=== PATIENT | female | born 1985 | race Caucasian/White ===

== ENCOUNTER → 2017-11-15 | Day surgery (SDC) | payer OTHER ==
[~2017-11-15] VITALS: Ht 175.3 cm; Wt 72.5 kg
[~2017-11-15] MED LIST: CEFAZOLIN 1000MG IV PUSH 7.5 ML IV SCH; CLINDAMYCIN 600 MG/54 ML D5W IV SCH; FENTANYL CITRATE INJ 50 MCG/1 ML 2 ML VIAL IV ONE; FENTANYL CITRATE INJ 50 MCG/1 ML 2 ML VIAL ONE; LIDOCAINE HCL 1% 20 ML VIAL INJ ONE; LIDOCAINE HCL 1% 20 ML VIAL ONE; LIDOCAINE/EPINEPHRINE 1% 20 ML VIAL ONE; MIDAZOLAM HCL 1 MG/ML 2ML VIAL ONE; MIDAZOLAM HCL 5 MG/ML 1 ML VIAL IV ONE; ORM MISCELLANEOUS MED TOP ONE; PATIENT'S ALLERGY INFO NEEDS ENTERED SCH; SODIUM CHLORIDE 0.9% 1000ML IV SCH
--- NOTE | 2017-11-15 06:07 | History and Physical ---
History & Physical Date of Service Nov 15, 2017. History & Physical CC: Varicose veins and venous insufficiency of the right lower extremity. HPI: Ms. Spencer is a very pleasant 31-year-old female, who has painful symptomatic bilateral lower extremity varicose veins. The right is more painful than the left. She has previously tried 3 months of compression stockings without much relief. She was seen at [facility] and had been evaluated for venous reflux, which she was found to have in bilateral lower extremities. She had previously been scheduled for venous ablation. However, her was admitted to [facility] and due to the distance and need for early childhood education instructor, she cancelled this appointment and has come to our office for re- evaluation. She states her varicosities are very painful by the afternoon at the end of the day. These are worse after she exercises. She states her symptoms are significantly better in the morning. She denies any ulcerations or bleeding. Noninvasive testing did show venous insufficiency of the right lower extremitiy. She denies any claudication, rest pain, or tissue loss. She denies any stroke or TIA-like symptoms. She denies any new abdominal or back pain. ALLERGIES ARE TO [place]. Past medical history is varicosities. Past surgical history is tonsillectomy in 2006. Home medications are none. SOCIAL HISTORY: She is a mother, who lives at home with her . She has a 5 and an [id number] child. No smoking. Social alcohol. No illicit substances. PHYSICAL EXAM: Weight is 73.5 kg, heart rate 70, blood pressure 102/62, saturating 99% on room air. This is a 31-year-old female, in no acute distress. Head is normocephalic, atraumatic. Extremities are intact. Neck is supple. Trachea is midline. Heart is regular. Her lungs are clear. Abdomen is soft, nontender, and nondistended, has large varicosities along the medial aspect of both bilateral lower extremities. No ulcerations, no chronic stasis dermatitis. She has palpable bilateral radial, femoral, DP and PT pulses. No focal deficits. Ms. Spencer is a very pleasant 31-year-old female with C+3 varicosities, who has failed conservative treatment. Her noninvasive testing did show venous insufficiency of the right lower extremity. Imp: Varicose veins and venous insufficiency of the right lower extremity. Plan: Patient is admitted for ablation of the right greater saphenous vein. I have discussed the risks options and benefits of the procedure with the patient. The patient understands the risks options and benefits and agrees to the procedure.
[2017-11-15 08:38] VITALS: BP 108/69; PULSE 50; TEMP 36.6; O2SAT 99; Ht 175.3 cm; Wt 72.5 kg
--- NOTE | 2017-11-15 09:35 | History & Physical Bridge Note ---
H&P Re-Evaluation Bridge Note: I have examined the patient, reviewed the History & Physical and in the interval since the performance of the History & Physical I have noted the following changes of clinical significance: No changes noted
--- NOTE | 2017-11-15 09:36 | Pre Sedation Assessment ---
Pre Sedation Assessment General Date of Sedation: Nov 15, 2017. Vital Signs Past 12 Hours Date Time Temp Pulse Resp B/P (MAP) Pulse Ox O2 Delivery O2 Flow Rate FiO2 11/15/17 08:38 36.6 50 18 108/69 (82) 99 Room Air Pre-Sedation Airway Assessment Smoking Status: Never Smoker Hx of Sleep Apnea: No Short Thick Neck: No Thyro-mental Distance: > 3 Finger Breadths Oral Cavity: WNL Mallampati Classification: Class I ASA Classification: Class I NPO Status Date of Last Intake of Fluids: Nov 14, 2017 Time of Last Intake of Fluids: 2199 Date of Last Intake of Solids: Nov 14, 2017 Time of Last Intake of Solids: 2199 Procedure Planning Contraindications for Sedation: None Current Medications Reviewed: Yes Notes The planned sedation has been discussed with the patient. Informed Consent was obtained. I have identified the patient, determined the appropriateness of sedation and have assessed the patient immediately prior to the procedure. All medicine(s) and interventions are by my order.
--- NOTE | 2017-11-15 10:31 | Discharge Instructions ---
Discharge Instructions Date of Service Nov 15, 2017. Visit Reason for Visit: Varicose Veins Discharge Discharge Diagnosis / Problem: Venous insufficiency rigth leg Discharge Goals Goal(s): Therapeutic intervention Activity Recommendations Activity Limitations: per Instructions/Follow-up section Anesthesia . Post Anesthesia Instructions: If you have had General Anesthesia or IV Sedation: * Do not drive today. * Resume driving when surgeon permits. * Do not make important decisions or sign legal documents today. * Call surgeon for: 1. Temperature elevations greater than 101 degrees F. 2. Uncontrollable pain. 3. Excessive bleeding. 4. Persistent nausea and vomiting. 5. Medication intolerance (nausea, vomiting or rash). * For nausea and vomiting use only clear liquids such as: tea, soda, bouillon until nausea subsides, then gradually increase diet as tolerated. * If you have any concerns or questions, call your surgeon's office. If physician is unavailable and it is an emergency, call 911 or go to the nearest emergency room. . Instructions / Follow-Up Instructions / Follow-Up Call [phone] to schedule a follow up appointment if one not already scheduled. SPECIAL CARE INSTRUCTIONS: Wraps/Dressings: * A compression wrap will be applied to your legs after the procedure and should remain in place until the morning after. * Remove the bandage if it rolls down or causes pain. Rewrap the leg starting at the bottom of the leg, just above the toes. Apply firm, but gently pressure when applying the wrap. * Avoid getting the wrap wet. * You may shower the following morning after you remove the wraps/dressings. Compression Stockings: * Begin wearing compression stockings the day following your procedure (after you have removed the wraps/dressings and showered). * Compression stockings should be put on in the morning and removed right before going to bed. * Stockings should be worn for 2 weeks following the procedure. * YOU MUST OBTAIN THE PRESCRIBED STOCKINGS PRIOR TO YOUR PROCEDURE. Activity: * Walk 4-5 times around the house after you come home from your procedure. * Elevate your leg(s) while sitting. * You may resume your normal activities as tolerated after 48 hours. * AVOID HEAVY LIFTING FOR 1 WEEK AND/OR CAR TRIPS OVER 1 HOUR OR FLYING FOR 2 WEEKS. Possible Complications: * Swelling/Bruising/Soreness - You may have some swelling, bruising and/or soreness after the procedure. you may also feel a "cord or rope" under the skin. This is normal. You may take Tylenol or Ibuprofen for pain as directed. Call our office ([phone]) if you develop: * Any redness, severe swelling, pain in the calf and/or drainage from the puncture sites You will be receiving a call from the Vascular Surgery Nurse after you are discharged. FOLLOW UP VISIT: You will be scheduled for an ultrasound of your leg(s) 4-5 days after the procedure. You will have a follow up visit with your surgeon in 2-4 weeks. If these have not already been scheduled, please call our office at [phone] to schedule. Diet Recommendations Recommended Home Diet: resume previous diet Procedures Procedures Performed: Right Lower Extremity Great Saphenous Vein Radiofrequency Ablation Moderate Sedation Pending Studies Studies pending at discharge: no Medical Emergencies . Who to Call and When: Medical Emergencies: If at any time you feel your situation is an emergency, please call 911 immediately. . Non-Emergent Contact Non-Emergency issues call your: Surgeon . . "Provider Documentation" section prepared by Dexter Paiz. .
--- NOTE | 2017-11-15 10:33 | Post Sedation Assessment ---
Post Sedation Assessment General Date of Sedation Nov 15, 2017. Vital Signs: Vital Signs Past 12 Hours Date Time Temp Pulse Resp B/P (MAP) Pulse Ox O2 Delivery O2 Flow Rate FiO2 11/15/17 10:25 52 16 100 Mask 4 11/15/17 10:20 50 16 100 Mask 4 11/15/17 10:15 47 16 100 Mask 4 11/15/17 10:10 48 16 100 Mask 4 11/15/17 10:05 57 16 100 Mask 4 11/15/17 10:00 50 16 110/65 100 Mask 4 11/15/17 08:38 36.6 50 18 108/69 (82) 99 Room Air Post Procedure Recovery Score Activity: (2) Moves 4 extremities * Respiration: (2) Deep breath/cough Circulation: (2) +/-20% PreAnes Value Consciousness: (2) Fully Awake Oxygen Saturation: (2) > 92% On Room Air Post Anesthesia Score: 10 Discharge Sedation Level of Care: Fast Track Phase II Post Sedation Plan On clinical assessment, the patient appears to have tolerated the sedation without complications. Patient is recovering as anticipated. Patient will continue to be monitored by nursing and may be discharged when sedation discharge criteria are met per below protocol. Upon Completions of procedure and additional 15 minutes continue every 5 minute vital signs and the P.A.R. score; then discharge to a Phase I or Fast Track to Phase II per the following guidelines: * Discharge Patient to appropriate Phase II area if PAR is 8 or greater or return to pre- procedure baseline. The post - procedure orders will be as directed. * If PAR score is less than 8 or not return to pre-procedure baseline then patient will follow Phase I monitoring till PAR is reached for Phase II. The Phase I may be done in procedure room or may call to secure a Phase I area. * If naloxone or flumazenil are used for reversal, hold in Phase I for an additional 60 -120 minutes before discharge to Phase II. Please call the Sedation Physician to re-evaluate and complete post-note for discharge to Phase II area. Do NOT discharge from procedure sedation or Phase 1 until post- sedation evaluation note is complete by procedure /sedation MD Sedation Discharge Instructions to be given to the patient at discharge to home.
--- NOTE | 2017-11-15 10:33 | [facility] Post Operative Brief Note ---
Immediate Operative Summary Operative Date Nov 15, 2017. Pre-Operative Diagnosis Venous Insufficiency right leg Post-Operative Diagnosis Venous Insufficiency right leg Procedure(s) Performed Right Lower Extremity Great Saphenous Vein Radiofrequency Ablation Moderate Sedation [id number] Surgeon Chencho Parachute Taper Surgeon(s) Pepe Estimated Blood Loss 1cc Findings Consistent with Post-Op Diagnosis Specimens None Drains None Anesthesia Type IV Sedat Cons RN Only Complication(s) none Disposition Accompanied Pt To Recover: no Disposition:
[2017-11-15 10:45] VITALS: BP 101/59; PULSE 52; TEMP 36.8; O2SAT 100
[2017-11-15 11:15] VITALS: BP 104/55; PULSE 56; TEMP 36.8; O2SAT 100
--- NOTE | 2017-11-15 11:35 | DIAGNOSTIC IMAGING REPORT ---
DATE OF PROCEDURE: 11/15/2017 PREOPERATIVE DIAGNOSIS: Right lower extremity venous insufficiency. POSTOPERATIVE DIAGNOSIS: Right lower extremity venous insufficiency. PROCEDURE: Radiofrequency ablation of right leg greater saphenous vein. Moderate sedation, 25 minutes. SURGEON: Dr. Dexter Paiz. CELLULAR PLASTICS CUTTER: Dr. Pratima Cantu. ESTIMATED BLOOD LOSS: 1 mL. SPECIMENS: None. DRAINS: None. ANESTHESIA: Moderate sedation plus local. COMPLICATIONS: None. INDICATIONS: Mrs. Carmel Spencer is a pleasant 32-year-old woman with a history of bilateral lower extremity symptomatic varicose veins. Her right lower extremity was more symptomatic than her left. She tried 3 months of compression stockings without relief. She underwent a venous duplex, which was positive for venous reflux in the bilateral lower extremities. For this reason, she was recommended to undergo radiofrequency ablation of the right greater saphenous vein. The risks, benefits and alternatives were discussed with the patient and she consented to the procedure. DESCRIPTION OF PROCEDURE: The patient was taken to the endovascular suite and placed in the supine position. Her right leg was prepped and draped in the usual sterile fashion. A safety timeout was performed and the patient, procedure, and sidedness were correctly identified. The patient was given moderate sedation. Ultrasound was used to identify the right greater saphenous vein. Local anesthesia was used to anesthetize the skin overlying the vein at the level of the mid calf. Micropuncture needle was used to access the right greater saphenous vein under ultrasound guidance. A guidewire was passed easily through the needle into the saphenous vein. The skin linda was made, the guide was removed, and the access sheath was advanced over the wire. The guidewire was then passed through the sheath up to the saphenofemoral junction. This was identified under ultrasound guidance. A 100-cm radiofrequency ablation catheter was passed over the wire and positioned 2 cm distal to the saphenofemoral junction. This was confirmed with ultrasound. Tumescent anesthesia was used to insulate the vein from surrounding tissues. This was placed again under ultrasound guidance. A total of 350 mL of tumescent was used to anesthetize the skin and subcutaneous tissues surrounding the vein. Radiofrequency catheter was used to ablate the vein from the proximal extent throughout its length. This was completed without difficulty. The catheter and sheath were removed and manual pressure was held over the saphenous access site in the mid calf. Hemostasis was achieved. Sterile dressing was applied over the puncture site. An Marcos wrap was applied to the right lower extremity. The patient tolerated the procedure well and there were no immediate complications. She was transferred to the recovery area in stable condition. Dr. Dexter Paiz was present for the entire procedure. BERRY
[2017-11-15 11:43] VITALS: BP 103/58; PULSE 62; TEMP 37; O2SAT 100
== END | disposition home or self-care (01) ==
LOC: C.ACU 08:03
PROVIDERS: ATTEND Surgery Vascular Surgery
DX: I87.2 Venous insufficiency (chronic) (peripheral) (principal); I83.91 Asymptomatic varicose veins of right lower extremity; Z90.89 Acquired absence of other organs